=== PATIENT | female | born 2000 ===

== ENCOUNTER 2024-09-20 11:06 | Emergency (ER) | payer OTHER, SELFPAY ==
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
[2024-09-20 11:31] VITALS: BP 104/70; BP 128/78; PULSE 88; RESP 18; TEMP 36.7; O2SAT 97; O2SAT 98; BMI 27.7
--- NOTE | 2024-09-20 11:41 | PC.NURSE ---
pt is refusing to change into jazmyne loya. states then i'm not suicidal anymore
--- NOTE | 2024-09-20 12:03 | MHC.CARE ---
CARE team attempted to speak with someone at [place] regarding the pt's [facility] status. EMS reported that she was transported under that status however were not given the paperwork. Admissions transferred this clinician to the [place] unit, however the phone rang for a long period of time without being answered.
--- OUTSIDE RECORDS SUMMARY | 2024-09-20 12:14 | XMS_ITS | Encounter Summary ---
Author Organization [employer] Address [address] [place] [address] [address] [place] [address] Care Team Providers Care Polisher Implant Name Role Phone Musa Mojica NP Primary Care Provider [phone] Reason for Visit * Reason Onset Date Comments Med Refill 09/19/2024 Encounter Details Date Type Department Care Team ([facility] st Contact Info) Description 09/19/2024 Refill [facility] [address] [place] [address] Musa Mojica NP [address] [place] [address] Gender dysphoria Social History Tobacco Use Types Packs/Day Years Used Date Smoking Tobacco: Never Smokeless Tobacco: Current Snuff Alcohol Use Standard Drinks/Week Comments Never 0 (1 standard drink = 0.6 oz pur e alcohol) Depression Answer Date Recorded Patient Health Questionnaire-9 Score 27 08/29/2024 Patient Health Questionnaire-9 Score 27 08/29/2024 Last PHQ-9: Questionnaire Data 3 0 08/29/2024 Depression Answer Date Recorded Patient Health Questionnaire-2 Score 6 08/29/2024 Comments No Sex and Gender Information Value Date Recorded Sex Assigned at Female 02/08/2024 10:41 AM EST Legal Sex Female 10:40 AM EST Gender Identity Male 02/08/2024 10:41 AM EST Sexual Orientation Bisexual 02/08/2024 10 :41 AM EST documented as of this encounter Miscellaneous Notes * Telephone Encounter - Charles Trevino MA - 09/19/2024 3:40 PM EDT Control Substance Requested by : Previous Appt: Office Visit on 08/29/2024 Component Date Value Ref Range Status Testosterone, Total, MS 08/29/2024 955 (H) 2 - 45 ng/dL Final Comment: For additional information, please refer to [email or web address].amazingtunes/faq/ [email or web address] (This link is being provided for informational/ educational purposes only.) This test was developed and its analytical performance characteristics have been determined by [facility] [place], [place]. It has not been cleared or approved by the U.S. Food and Drug Administration. This assay has been validated pursuant to the CLIA regulations and is used for clinical purposes. Estradiol, Free 08/29/2024 0.61 pg/mL Final Comment: Female Reference Ranges for Estradiol, Free (pg/mL): Follicular Stage: 0.43-5.03 Luteal Stage: 0.40-5.55 Postmenopausal: < or = 0.38 Estradiol, Ultrasensitive, LC/MS 08/29/2024 35 pg/mL Final Comment: Female Reference Ranges for Estradiol, Ultrasensitive (pg/mL): Follicular Phase: 39-375 Luteal Phase: 48-440 Postmenopausal Phase: < or = 10 This test was developed and its analytical performance characteristics have been determined by [facility]. It has not been cleared or approved by the FDA. This assay has been validated pursuant to the CLIA regulations and is used for clinical purposes. Hemoglobin 08/29/2024 12.4 11.7 - 15.5 g/dL Final Hematocrit 08/29/2024 41.5 35.0 - 45.0 % Final HIV Final Interpretation 08/29/2024 Final Comment: HIV Negative HIV-1 antigen and HIV-1/HIV-2 antibodies were not detected. There is no laboratory evidence of HIV infection. HIV Antigen/Antibody, 4th Generati* 08/29/2024 NON-REACTIVE NON-REACTIVE Final Hepatitis C Antibody 08/29/2024 NON-REACTIVE NON-REACTIVE Final Comment: HCV antibody was non-reactive. There is no laboratory evidence of HCV infection. In most cases, no further action is required. However, if recent HCV exposure is suspected, a test for HCV RNA (test code 88050) is suggested. For additional information please refer to http://BrightWhistle.amazingtunes/faq/MNX42v8 (This link is being provided for informational/ educational purposes only.) Cholesterol, Total 08/29/2024 212 (H) <200 mg/dL Final HDL Cholesterol 08/29/2024 48 (L) > OR = 50 mg/dL Final Triglycerides 08/29/2024 125 <150 mg/dL Final LDL Cholesterol 08/29/2024 139 (H) mg/dL Final Comment: Reference range: <100 Desirable range <100 mg/dL for primary prevention; <70 mg/dL for patients with CHD or diabetic patients with > or = 2 CHD risk factors. LDL-C is now calculated using the Ezra-Culver calculation, which is a validated novel method providing better accuracy than the Friedewald equation in the estimation of LDL-C. Ezra SS et al. BYRON. 2013;310(19): 9261-3561 (http://BrightWhistle.Ticket Cake.Leixir/faq/SSV007) Chol/HDLC Ratio 08/29/2024 4.4 <5.0 (calc) Final Non-HDL Cholesterol 08/29/2024 164 (H) <130 mg/dL Final Comment: For patients with diabetes plus 1 major ASCVD risk factor, treating to a non-HDL-C goal of <100 mg/dL (LDL-C of <70 mg/dL) is considered a therapeutic option. Hepatitis B Core Antibody Total 08/29/2024 NON-REACTIVE NON-REACTIVE Final Comment: For additional information, please refer to http://Sutus/faq/ZJQ327 (This link is being provided for informational/ educational purposes only.) Hepatitis B Surface Ag 08/29/2024 NON-REACTIVE NON-REACTIVE Final Comment: For additional information, please refer to http://BrightWhistle.amazingtunes/faq/TZY819 (This link is being provided for informational/ educational purposes only.) Hepatitis B Surface Antibody Immun* 08/29/2024 16 > OR = 10 mIU/mL Final Comment: PATIENT HAS IMMUNITY TO HEPATITIS B VIRUS. For additional information, please refer to http://Sutus/faq/PVT308 (This link is being provided for informational/ educational purposes only). Past Appointments Date Time Status Provider Department Type Appt Notes 09/05/2024 3:50 PM Can Musa Mojica NP [facility] Office Visit 1 week f/u 09/02/2024 1:00 PM Chirag Fuentes NP [facility] PR[facility] OV Extended 08/29/2024 4:10 PM Alexandria Mojica NP [facility] Office Visit f/u on a1c 08/23/2024 10:00 AM [facility] MAT NURSING [facility] PR[facility] OV Extended OUD intake for suboxone, releasing from incarceration. On 16mg 08/21/2024 11:00 AM Chirag Tillman NP [facility] Office Visit f/u Future Appointments Date Time Provider Department Center 09/23/2024 1:50 PM Tila Bell NP [facility] Control Substance Request Medications: testosterone cypionate (Depo-Testosterone) 200 MG/ML injection Last Refill Quantity: 1mL(7) LOAN SECRETARY Last # of Refills: 0 Last Rx Printed: 08/29/2024 LAST SOLD:08/30/2024 [facility]: Did you locate the patient record in the [facility] System? Yes Did the Patient have more than 1 record under that name and ? Yes Were there any non-[facility] prescribers found, not previously noted as acceptable in the last 6 months? N/A Were there any meds filled outside [place] in the last 6 months? No Are the any meds listed on the [facility] that are not on the current med list from the last 6 months?N/A documented in this encounter Plan of Treatment Upcoming Encounters Date Type Department Care Team (Late st Contact Info) Description 09/23/2024 1:50 PM EDT Office Visit [facility] [address] [place] [address] Tila Bell NP [address] [place] [address] documented as of this encounter Visit Diagnoses Diagnosis Gender dysphoria documented in this encounter Care Teams Polisher Implant Relationship Specialty Start Date End Date Musa Mojica NP [address] [place] [id number] PCP - General Family Medicine 08/29/24 documented as of this encounter
--- OUTSIDE RECORDS SUMMARY | 2024-09-20 12:14 | XMS_ITS | Clinical Summary ---
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 Medications buprenorphine-nal oxone (SUBOXONE) 8-[address] 1 Film under the tongue in the morning and 1 Film before bedtime. Active cetirizine (ZYRTEC) 10 MG tablet Take 10 mg by mouth daily 024 Active naloxone (NARCAN) 4 MG/0.1ML spray 4 mg by Nasal route See Admin Instructions 025 2025 Active traZODone (DESYREL) 50 MG tablet Take 25 mg by mouth nightly Active testosterone cypionate (DEPOTESTOTERONE) 200 MG/ML injection Inject 40 mg into the muscle once a week 024 Active naloxone (NARCAN) 4 MG/0.1ML spray 1 spray intranasally in 1 nostril, may repeat using a new device every 2-3mins in alternating nostrils until medical help arrives 025 2024 Active escitalopram (LEXAPRO) 5 MG tablet Take 1 tablet by mouth nightly for 7 days 7 tablet 025 2024 Active clonazePAM (KLONOPIN) 0.5 MG tablet Take 1 tablet by mouth at bedtime for 7 days 6 tablet 025 2024 Active OLANZapine zydis (ZYPREXA) 5 MG disintegrating tablet Take 1 tablet by mouth nightly for 7 days 7 tablet 2024 Active naloxone (NARCAN) 4 MG/0.1ML spray 1 spray intranasally in 1 nostril, may repeat using a new device every 2-3mins in alternating nostrils until medical help arrives 1 each 2024 Active traZODone (DESYREL) 100 MG tablet Take 2 tablets by mouth nightly 60 tablet 2024 Discontinued(D ose/Sig Adjustment) OLANZapine zydis (ZYPREXA) 5 MG disintegrating tablet Take 1 tablet by mouth nightly 30 tablet 2024 Discontinued(T herapy Completed) ibuprofen (ADVIL) 600 MG tablet Take 1 tablet by mouth every 6 (six) hours for 5 days 20 tablet 2024 acetaminophen (TYLENOL) 500 MG tablet Take 1 tablet by mouth every 6 (six) hours for 5 days 20 tablet 2024 Atropine Sulfate (ATROPINE, PF,) 1 MG/ML injection Inject 1 mL into the vein once for 1 dose 1 mL 2024 Discontinued(S top Taking at Discharge) busPIRone (BUSPAR) 10 MG tablet Take 10 mg by mouth in the morning and 10 mg before bedtime. 2024 Discontinued(T herapy Completed) FLUoxetine (PROZAC) 20 MG capsule Take 60 mg by mouth daily 2024 Discontinued(T herapy Completed) acetaminophen (TYLENOL) 325 MG tablet Take 2 tablets by mouth every 6 (six) hours as needed for Pain for up to 14 days 56 tablet 2024 Discontinued(S top Taking at Discharge) gabapentin (NEURONTIN) 300 MG capsule Take 1 capsule by mouth 3 (three) times daily 2024 Discontinued(S top Taking at Discharge) cloNIDine (CATAPRES) 0.2 MG tablet 0.2 mg 3 (three) times daily as needed (anxiety) 024 2024 Discontinued(S top Taking at Discharge) simethicone (MYLICON) 80 MG chewable tablet Take 1 tablet by mouth every 6 (six) hours as needed for Flatulence 025 2024 Discontinued(S top Taking at Discharge) clonazePAM (KLONOPIN) 0.5 MG tablet Take 1 tablet by mouth in the morning and 1 tablet before bedtime. 025 2024 Discontinued escitalopram (LEXAPRO) 5 MG tablet Take 1 tablet by mouth nightly 025 2024 Discontinued OLANZapine zydis (ZYPREXA) 5 MG disintegrating tablet Take 1 tablet by mouth in the morning and 1 tablet before bedtime. 025 2024 Discontinued Active Problems Problem Noted Date Diagnosed Date Cecal lesion 09/11/2024 Foreign body alimentary tract, sequela Tachycardia 09/11/2024 Intentional ingestion of batteries, sequela 07/2024 Acute cystitis without hematuria 09/05/2024 Vaginal discharge 09/05/2024 Discharge from right nipple 09/05/2024 Overview (09/05/2024): Patient reports blue color. Closed fracture of phalanx of right little finge r 09/05/2024 Clonidine overdose, intentio nal self-harm, initial encounter 12/15/2023 Medication overdose 12/15/2023 Borderline personality disorder 12/06/2023 Self-injurious behavior 12/05/2023 Right-sided chest wall pain 12/05/2023 Hyperlipidemia 12/05/2023 Esophageal reflux disease Esophageal ulcer Hematochezia Irritable bowel syndrome Anemia History of iron deficiency [id number]-ht-[id number] transgender person Nicotine dependence Overview (12/05/2023): Daily use of nicotine gum, a4 4 mg doses. Resolved Problems Problem Noted Date Diagnosed Date Resolved Date Acute cystitis without hematuria 12/20/2023 12/22/2023 Encounters Date Type Department Care Team Description 09/16/2024 5:18 PM EDT - 09/17/2024 2:29 [place] [address] Eloy Minor MD Borderline personality disorder (HCC); Discharge from right nipple [N64.52]; Intentional ingestion of batteries, sequela [T18.9XXS]; Vaginal discharge [N89.8] Discharge Disposition: Home 09/11/2024 11:59 PM EDT Anesthesia Event [facility] - ICU [address] [place] [address] Kwabena Olsen MD Zhang, Yuemei, MD 09/11/2024 11:48 PM EDT - 09/16/2024 5:18 PM EDT [place] [address] Carmelo Lerma MD Erkan, Muge, MD Ali, Basmaa, MD Paz, Ziv, MD Intentional ingestion of batteries, sequela; Borderline personality disorder (HCC) Discharge Disposition: Psych Admit-[facility] 09/10/2024 [place] [address] 09/09/2024 10:43 AM EDT Anesthesia Event [facility] Operating Room [address] [place] [phone] Zeus Moreau MD 09/09/2024 9:50 AM EDT - 09/09/2024 10:10 AM EDT Surgery [facility] Operating Room [address] [place] [phone] Arben Cornejo MD EGD (ESOPHAGOGASTRODUODE NOSCOPY) 09/09/2024 Travel 09/05/2024 Plan of Care Documentation [address] [address] 09/04/2024 4:01 PM EDT - 09/11/2024 11:43 [place] [address] Eloy Minor MD Borderline personality disorder (HCC); Acute cystitis without hematuria [N30.00]; Clonidine overdose, intentional self-harm, initial encounter ([facility]) [T46.5X2A]; Closed nondisplaced fracture of phalanx of right little finger with routine healing, unspecified phalanx, subsequent encounter [S62.606D]; Discharge from right nipple [N64.52]; Gastroesophageal reflux disease with esophagitis, unspecified whether hemorrhage [K21.00]; Ulcer of esophagus with bleeding [K22.11]; Cmrpkn-id-zqmx transgender person [Z78.9]; Hematochezia [K92.1]; History of iron deficiency [Z86.39]; Irritable bowel syndrome, unspecified type [K58.9]; Vaginal discharge [N89.8]; Cecal lesion; Foreign body alimentary tract, sequela; Tachycardia Discharge Disposition: Other Facility 09/01/2024 12:33 AM EDT - 09/04/2024 3:55 PM EDT [place] [address] Tila Matos MD Gillette, Michael, MD Agarwal, Anup, MD Clonidine overdose, intentional self-harm, initial encounter ([facility]); Self-injurious behavior Discharge Disposition: Psych Admit-[facility] 09/01/2024 Travel 08/30/2024 9:00 AM EDT Office Visit [facility] ORTHOPED[facility] - [address] [phone] Abril Junior MD Right hand pain (Primary Dx); Closed displaced fracture of neck of right fifth metacarpal bone with routine healing 08/30/2024 Travel 08/24/2024 11:44 AM EDT - 08/24/2024 5:24 PM EDT Emergency [facility] [place] [address] Florinda Alejandra MD Closed displaced fracture of shaft of fifth metacarpal bone of right hand, initial encounter; Right lower quadrant abdominal pain; Pelvic pain; Dysuria Discharge Disposition: Home 08/24/2024 Travel from Last 3 Months Social History Tobacco Use Types Packs/Day Years Used Date Smoking Tobacco: Every Day Cigarettes 0.3 5.6 Started: 2019 Passive Smoke Exposure: Never Smokeless Tobacco: Former Quit: 02/2023 Tobacco Cessation:Ready to Q uit: No; Counseling Given: Yes Alcohol Use Standard Drinks/Week Comments Yes 0 (1 standard drink = 0.6 oz pur e alcohol) Comments No Sex and Gender Information Value Date Recorded Sex Assigned at Not on file Legal Sex Female 8:25 AM EDT Gender Identity Transgender Male 12/13/2023 1:50 PM EST Sexual Orientation Bisexual 12/03/2023 12 :20 AM EDT Last Filed Vital Signs Vital Sign Reading Time Taken Comments Blood Pressure 117/82 09/17/2024 7:44 AM EDT Pulse 85 09/17/2024 7:44 AM EDT Temperature 36.6 C (97.8 F) 09/17/2024 7:44 AM EDT Respiratory Rate 18 09/17/2024 7:53 AM EDT Oxygen Saturation 97% 09/17/2024 7:44 AM EDT Inhaled Oxygen Concentration - - Weight 75.4 kg (166 lb 3.2 oz) 09/16/2024 5:27 P M EDT Height 160 cm (5' 3 ) 09/16/2024 5:27 PM EDT Body Mass Index 29.44 09/16/2024 5:27 PM EDT Plan of Treatment Health Maintenance Due Date Last Done Comments Contraceptive Care Screening 1999 PAP SMEAR 1999 HPV VACCINE SERIES (1 - Risk 3-dose series) 12/28/2010 HIV SCREENING 12/28/2012 CHLAMYDIA SCREEN 12/28/2014 AWQ Questionnaire 12/28/2017 HEALTH CARE PROXY 12/28/2017 HEP C SCREEN 12/28/2017 Smoking/Tobacco Cessation Counseling 12/28/2017 PNEUMOCOCCAL VACCINE SERIES (< 65) (1 of 2 - PCV) 12/28/2018 PHYSICAL EXAM 12/28/2021 COVID-19 Vaccine (3 - 2023-2 5 season) 2023 07/23/2020, 06/25/2020 INFLUENZA VACCINE (#1) 2024 LIPID SCREENING 09/17/2029 09/17/2024, 09/06, 12/17/2023, Additional history exists TETANUS VACCINE (2 - Td or Tdap) 06/03/2031 06/03/19 ZOSTER VACCINE (1 of 2) 12/28/2049 Procedures Procedure Name Priority Date/Time Associated Diagnosis Comments HC LIPID PANEL Routine 09/17/2024 7:39 AM EDT HC HEMOGLOBIN A1C Routine 09/15/2024 7:3 5 AM EDT HC LIPID PANEL Routine 09/15/2024 7:35 AM EDT HC BASIC METABOLIC PANEL Routine 09/15/2024 7:35 AM EDT HC CBC & PLATELET Routine 09/15/2024 7:3 5 AM EDT XR ABDOMEN (KUB) 1 VIEW Routine 09/14/2024 9:34 PM EDT XR CHEST PORTABLE Routine 09/14/2024 10: 26 AM EDT XR ABDOMEN PORTABLE Routine 09/14/2024 1 0:25 AM EDT HC CBC & PLATELET Routine 09/14/2024 10: 20 AM EDT PHOSPHORUS MAGNESIUM Routine 09/14/2024 10:20 AM EDT HC BASIC METABOLIC PANEL Routine 09/14/2024 10:20 AM EDT XR CHEST PORTABLE Routine 09/13/2024 1:0 7 PM EDT XR ABDOMEN PORTABLE Routine 09/13/2024 1 :07 PM EDT HC CBC & PLATELET Routine 09/13/2024 4:3 9 AM EDT HC BASIC METABOLIC PANEL Routine 09/13/2024 4:39 AM EDT PHOSPHORUS MAGNESIUM Routine 09/13/2024 4:39 AM EDT XR CHEST PORTABLE Routine 09/12/2024 7:1 3 PM EDT XR CHEST PORTABLE Routine 09/12/2024 1:1 6 PM EDT XR ABDOMEN PORTABLE Routine 09/12/2024 1 2:30 PM EDT CARDIO/PULM SCAN 09/12/2024 9:26 AM EDT XR ABDOMEN PORTABLE Routine 09/12/2024 5 :07 AM EDT HOLD BLUE TOP TUBE Routine 09/12/2024 12 :58 AM EDT HC LACTIC ACID Routine 09/12/2024 12:58 AM EDT HC COMPREHENSIVE METABOLIC PANEL Routine 09/12/2024 12:58 AM EDT HC CBC & PLATELET Routine 09/12/2024 12: 58 AM EDT CARDIO/PULM SCAN 09/12/2024 12:3 0 AM EDT XR CHEST PORTABLE Routine 09/12/2024 12: 20 AM EDT XR ABDOMEN PORTABLE Routine 09/12/2024 1 2:20 AM EDT HC LACTIC ACID Routine 09/11/2024 2:48 PM EDT HC BASIC METABOLIC PANEL Routine 09/11/2024 2:48 PM EDT CBC, PLATELET & DIFFERENTIAL Routine 09/11/2024 2:48 PM EDT TYPE AND SCREEN Routine 09/11/2024 2:[address] ABDOMEN & PELVIS W IV CONTRAST Stat 09/11/2024 9:44 AM EDT XR ABDOMEN (KUB) 1 VIEW Routine 09/10/2024 10:11 PM EDT XR ABDOMEN (KUB) 1 VIEW Routine 09/10/2024 9:56 AM EDT XR ABDOMEN (KUB) 1 VIEW Routine 09/09/2024 9:56 PM EDT [facility] (18+) UP TO 2 HR Routine 09/09/2024 6:45 PM EDT XR ABDOMEN (KUB) 1 VIEW Routine 09/09/2024 1:40 PM EDT EGD (ESOPHAGOGASTRODUODENO SCOPY) 09/09/2024 10:43 AM EDT URINE TEST (POINT OF CARE) Routine 09/09/2024 10:20 AM EDT EKG Routine 09/08/2024 8:39 PM EDT XR CHEST 2 VIEWS Stat 09/08/2024 8:02 PM EDT XR ABDOMEN (KUB) WITH UPRIGHT AND OR DECUBITUS Stat 09/08/2024 8:01 PM EDT [facility] (18+) UP TO 2 HR Routine 09/08/2024 7:46 PM EDT XR HAND RIGHT MINIMUM 3 VIEWS Routine 09/08/2024 1:03 PM EDT XR HAND RIGHT MINIMUM 3 VIEWS Routine 09/06/2024 2:34 PM EDT [facility] (18+) UP TO 2 HR Routine 09/05/2024 9:50 PM EDT HC CULTURE,URINE W/COLONY COUNT Routine 09/04/2024 12:14 AM EDT URINALYSIS RFLX TO URINE CULT Routine 09/04/2024 12:14 AM EDT CARDIO/PULM SCAN 09/03/2024 7:30 AM EDT HC PROLACTIN Routine 09/03/2024 5:00 AM EDT HC HEMOGLOBIN A1C Routine 09/03/2024 5:0 0 AM EDT PHOSPHORUS MAGNESIUM Routine 09/03/2024 5:00 AM EDT HC BASIC METABOLIC PANEL Routine 09/03/2024 5:00 AM EDT HC CBC & PLATELET Routine 09/03/2024 5:0 0 AM EDT CARDIO/PULM SCAN 09/02/2024 8:15 PM EDT CARDIO/PULM SCAN 09/02/2024 2:49 PM EDT HC GLUCOSE (POC) Routine 09/02/2024 1:29 PM EDT HC FERRITIN Routine 09/02/2024 4:06 AM EDT HC TOTAL IRON BINDING CAPACITY Routine 09/02/2024 4:06 AM EDT HC IRON Routine 09/02/2024 4:06 AM EDT PHOSPHORUS MAGNESIUM Routine 09/02/2024 4:06 AM EDT HC CBC & PLATELET Routine 09/02/2024 4:0 6 AM EDT HC BASIC METABOLIC PANEL Routine 09/02/2024 4:06 AM EDT EKG Routine 09/01/2024 8:07 PM EDT EKG Routine 09/01/2024 4:28 PM EDT HC CHORIONIC (HCG) QUALITATIVE SERUM Routine 09/01/2024 3:25 PM EDT HC BASIC METABOLIC PANEL Routine 09/01/2024 3:25 PM EDT PHOSPHORUS MAGNESIUM Routine 09/01/2024 3:25 PM EDT EKG Routine 09/01/2024 2:59 PM EDT CARDIO/PULM SCAN 09/01/2024 1:07 PM EDT EKG Routine 09/01/2024 12:10 PM EDT HC BASIC METABOLIC PANEL Routine 09/01/2024 11:56 AM EDT PHOSPHORUS MAGNESIUM Routine 09/01/2024 11:56 AM EDT EKG Routine 09/01/2024 10:04 AM EDT HC BASIC METABOLIC PANEL Routine 09/01/2024 8:26 AM EDT PHOSPHORUS MAGNESIUM Routine 09/01/2024 8:26 AM EDT EKG Routine 09/01/2024 3:56 AM EDT HC CBC & PLATELET Routine 09/01/2024 3:5 1 AM EDT HC BASIC METABOLIC PANEL Routine 09/01/2024 3:51 AM EDT PHOSPHORUS MAGNESIUM Routine 09/01/2024 3:51 AM EDT URINE DRUG SCREEN Routine 09/01/2024 2:2 3 AM EDT EKG Routine 09/01/2024 2:06 AM EDT [place] INTUBATION ENDOTRACHEAL EMERGENCY PROCEDURE Routine 09/01/2024 2:05 AM EDT XR CHEST PORTABLE Stat 09/01/2024 2:0 4 AM EDT HC ARTERIAL BLOOD GAS ANALYSIS Routine 09/01/2024 2:04 AM EDT BLOOD SUGAR FINGERSTICK (POINT OF CARE) Routine 09/01/2024 1:34 AM EDT HOLD RED TOP TUBE Routine 09/01/2024 1:1 2 AM EDT HOLD GREEN TOP TUBE Routine 09/01/2024 1 :12 AM EDT HOLD BLUE TOP TUBE Routine 09/01/2024 1: 12 AM EDT EKG Routine 09/01/2024 12:57 AM EDT HC HEPATIC FUNCTION Routine 09/01/2024 1 2:52 AM EDT SERUM DRUG SCREEN Routine 09/01/2024 12: 52 AM EDT HC BASIC METABOLIC PANEL Routine 09/01/2024 12:52 AM EDT CBC, PLATELET & DIFFERENTIAL Routine 09/01/2024 12:52 AM EDT US PELVIC NON-OB W TRANSVAG, 3D, DUPLEX Stat 08/24/2024 3:[address] ABDOMEN & PELVIS W IV CONTRAST Stat 08/24/2024 2:22 PM EDT URINE CULTURE WILL NOT BE DONE Routine 08/24/2024 1:24 PM EDT URINE TEST (POINT OF CARE) Routine 08/24/2024 12:43 PM EDT XR HAND RIGHT MINIMUM 3 VIEWS Stat 08/24/2024 12:32 PM EDT URINALYSIS RFLX TO URINE CULT Routine 08/24/2024 11:59 AM EDT HC COMPREHENSIVE METABOLIC PANEL Routine 08/24/2024 11:58 AM EDT CBC, PLATELET & DIFFERENTIAL Routine 08/24/2024 11:58 AM EDT from Last 3 Months Results * (ABNORMAL) Lipid Panel (09/17/2024 7:39 AM EDT) Only the most recent of2 resultswithin the time period is included. Pathologist [facility] Cholesterol 156 0 - 239 mg/dL [facility] TRIGLYCERIDES 207(H) 0 - 150 mg/dL [facility] HIGH DENSITY LIPOPROTEIN 30(L) 40 - 60 mg/dL [facility] LOW DENSITY LIPOPROTEIN DIRECT 90 0 - 189 mg/dL [facility] 09/17/2024 7:39 AM EDT 09/17/2024 8:21 AM EDT us Eloy Minor MD LABORATORY Final Res ult [id number] [place] [address], * (ABNORMAL) CBC with Platelet (09/15/2024 7:35 AM EDT) Only the most recent of7 resultswithin the time period is included. Pathologist [facility] WHITE BLOOD CELL COUNT 5.1 4.0 - 11.0 TH/uL [facility] RED BLOOD CELL COUNT 4.49 3.90 - 5.20 M/uL [facility] HEMOGLOBIN 10.5(L) 11.2 - 15.7 g/dL [facility] HEMATOCRIT 34.7 34.1 - 44.9 % [facility] MEAN CORPUSCULAR VOL 77.3(L) 80.0 - 100.0 fl [facility] MEAN CORPUSCULAR HGB 23.4(L) 26.0 - 34.0 pg [facility] MEAN CORRIE HGB CONC 30.3(L) 31.0 - 37.0 g/dL [facility] RBC DISTRIBUTION WIDTH STD DEV 56.6(H) 35.1 - 46.3 fL [facility] PLATELET COUNT 314 150 - 400 TH/uL [facility] MEAN PLATELET VOLUME 9.9 8.7 - 12.5 fL [facility] NRBC % 0.0 0.0 - 0.0 % [facility] ABSOLUTE NRBC COUNT 0.0 0.0 - 0.0 TH/uL [facility] 09/15/2024 7:35 AM EDT 09/15/2024 7:54 AM EDT Narrative [facility] - 09/17/2024 1:04 AM EDT Tests added: A1C by AA on 09/17/24 at 0103 by [email or web address]. us Catherine Manzanares MD LABORATORY Edited Result - Final Performing Organization Address [facility] [place] [address], * Hemoglobin A1c (09/15/2024 7:35 AM EDT) Only the most recent of2 resultswithin the time period is included. HEMOGLOBIN A1C 5.6 4.0 - 5.6 % [facility] Comment: Hemoglobin A1C Interpretive information 5.7 - 6.4 % Increased risk for diabetes; recommend lifestyle management > 6.4 % Diagnosis of diabetes; should have at least 2 elevated results for diagnosis of diabetes. > 8.0 % Action suggested < 7.0 % Goal of therapy for diabetics; higher targets may apply for some with specific comorbidities. ESTIMATED AVERAGE GLUCOSE 114 74 - 160 mg/dL [facility] 09/15/2024 7:35 AM EDT 09/15/2024 7:53 AM EDT us Eloy Minor MD LABORATORY Final Res ult Performing Organization Address [facility] [place] [address], * Basic Metabolic Panel (09/15/2024 7:35 AM EDT) Only the most recent of11 resultswithin the time period is included. SODIUM 140 136 - 145 mmol/L [facility] POTASSIUM 3.9 3.5 - 5.1 mmol/L [facility] CHLORIDE 106 98 - 107 mmol/L [facility] CARBON DIOXIDE 24 21 - 32 mmol/L [facility] ANION GAP 10 10 - 22 mmol/L [facility] CALCIUM 8.8 8.5 - 10.5 mg/dL [facility] Glucose Random 95 74 - 160 mg/dL [facility] BUN (UREA NITROGEN) 12 7 - 18 mg/dL [facility] CREATININE 0.7 0.4 - 1.2 mg/dL [facility] ESTIMATED GLOMERULAR FILT RATE > 60 >60 ML/MIN [facility] Comment: On October 29, 2020 the NKF-ASN Task Force recommended the adoption of the new eGFR 2020 CKD EPI creatinine equation that estimates kidney function without a race variable. NKF and ASN recommend diagnosing kidney disease using a blood test for creatinine to estimate GFR and a urine test for albumin to calculate albumin to creatinine ratio (uACR). For more information please see https://www.kidney.org/news/xxc-twx-qxw-fnnwzjt-bcl-oje-to-d geebsdd-evxtvq-jqrpzggo. 09/15/2024 7:35 AM EDT 09/15/2024 7:53 AM EDT Narrative [facility] - 09/17/2024 1:21 AM EDT Tests added: LIPID by AA on 09/17/24 at 0103 by [email or web address]. us Ctaherine Manzanares MD LABORATORY Edited Result - Final [facility] [address] [place] [address], [place] * XR Abdomen (KUB) 1 view (09/14/2024 9:34 PM EDT) Only the most recent of5 resultswithin the time period is included. Anatomical Region Laterality Modality Abdomen and Pelvis Digital Radio graphy 09/15/2024 8:38 AM EDT Impressions 09/15/2024 8:39 AM EDT Nonobstructed bowel gas pattern. No foreign bodies noted. Reviewed and Electronically Signed By: Jossie Ndiaye MD Signed Date and Time: 09/15/2024 8:39 AM Narrative 09/15/2024 8:39 AM EDT Technique: Abdomen, 1 view Indication: Battery injestion. monitor if passed Comparison: 09/14/2024 at 10:19 a.m. Findings: Tubes/lines: None Bowel Gas Pattern: There are no dilated small bowel loops to suggest small bowel obstruction. The previously noted batteries in the distal colon appear to have passed and no foreign bodies noted. Calcifications: There are no abnormal calcifications. Bones: Unremarkable Procedure Note Jossie Ndiaye MD - 09/15/2024 Technique: Abdomen, 1 view Indication: Battery injestion. monitor if passed Comparison: 09/14/2024 at 10:19 a.m. Findings: Tubes/lines: None Bowel Gas Pattern: There are no dilated small bowel loops to suggest smallbowel obstruction. The previously noted batteries in the distal colonappear to have passed and no foreign bodies noted. Calcifications: There are no abnormal calcifications. Bones: Unremarkable IMPRESSION: Nonobstructed bowel gas pattern. No foreign bodies noted. Reviewed and Electronically Signed By: Jossie Ndiaye MD Signed Date and Time: 09/15/2024 8:39 AM us Kory Montana MD RAD XR ORDERABLES Zuly l Result * XR Chest Portable (09/14/2024 10:26 AM EDT) Only the most recent of6 resultswithin the time period is included. Anatomical Region Laterality Modality Chest Digital Radiogra phy 09/14/2024 10:5 6 AM EDT Impressions 09/14/2024 10:57 AM EDT No ingested foreign body or acute cardiopulmonary findings on portable chest radiograph. Reviewed and Electronically Signed By: Victorino Grant MD Signed Date and Time: 09/14/2024 10:57 AM Narrative 09/14/2024 10:57 AM EDT TECHNIQUE: Portable chest, 10:17 a.m. Indication: swallowed batteries Comparison: 09/13/2024 FINDINGS: Quality: Satisfactory. Tubes/lines: None. Lungs: The lungs are clear. Pleura: There is no pleural effusion or pneumothorax. Heart: The cardiac silhouette is unremarkable. Mediastinum/eleni: Unremarkable. Bones and Soft Tissues: There are screws in the left glenoid. There are no other radiopaque foreign bodies. Procedure Note Victorino Grant MD - 09/14/2024 TECHNIQUE: Portable chest, 10:17 a.m. Indication: swallowed batteries Comparison: 09/13/2024 FINDINGS: Quality: Satisfactory. Tubes/lines: None. Lungs: The lungs are clear. Pleura: There is no pleural effusion or pneumothorax. Heart: The cardiac silhouette is unremarkable. Mediastinum/eleni: Unremarkable. Bones and Soft Tissues: There are screws in the left glenoid. There are noother radiopaque foreign bodies. IMPRESSION: No ingested foreign body or acute cardiopulmonary findings on portablechest radiograph. Reviewed and Electronically Signed By: Victorino Grant MD Signed Date and Time: 09/14/2024 10:57 AM us Catherine Manzanares MD RAD XR ORDERABLES Final Result * XR Abdomen Portable (09/14/2024 10:25 AM EDT) Only the most recent of5 resultswithin the time period is included. Anatomical Region Laterality Modality Abdomen and Pelvis Digital Radio graphy 09/14/2024 11:1 6 AM EDT Impressions 09/14/2024 11:17 AM EDT 1 remaining ingested battery, in the sigmoid colon. Reviewed and Electronically Signed By: Victorino Grant MD Signed Date and Time: 09/14/2024 11:17 AM Narrative 09/14/2024 11:17 AM EDT Technique: Portable Abdomen, 10:19 a.m. Indication: swallowed batteries Comparison: 09/13/2024 Findings: Tubes/lines: None Bowel Gas Pattern: There is a non-obstructed bowel gas pattern. One of the 2 previously seen batteries remains and has migrated to the sigmoid colon, and the other is no longer visualized. Calcifications: There are no significant calcifications. Soft Tissues: No soft tissue masses are evident. Bones: Unremarkable Procedure Note Victorino Grant MD - 09/14/2024 Technique: Portable Abdomen, 10:19 a.m. Indication: swallowed batteries Comparison: 09/13/2024 Findings: Tubes/lines: None Bowel Gas Pattern: There is a non-obstructed bowel gas pattern. One of the2 previously seen batteries remains and has migrated to the sigmoid colon,and the other is no longer visualized. Calcifications: There are no significant calcifications. Soft Tissues: No soft tissue masses are evident. Bones: Unremarkable IMPRESSION: 1 remaining ingested battery, in the sigmoid colon. Reviewed and Electronically Signed By: Victorino Grant MD Signed Date and Time: 09/14/2024 11:17 AM Catherine Manzanares MD RAD XR ORDERABLES Final Result * Phosphorus Magnesium (09/14/2024 10:20 AM EDT) Only the most recent of8 resultswithin the time period is included. PHOSPHORUS 3.3 2.5 - 4.9 mg/dL [facility] MAGNESIUM 2.1 1.6 - 2.6 mg/dL [facility] 09/14/2024 10:2 0 AM EDT 09/14/2024 10:30 AM EDT Catherine Manzanares MD LABORATORY Final Result Performing Organization Address [facility] [place] [address], [place] * CARDIO/PULM SCAN (09/12/2024 9:26 AM EDT) Only the most recent of6 resultswithin the time period is included. us Nihon Kohden Device SCAN ORDERS Final Result * Hold Blue Top Tube (09/12/2024 12:58 AM EDT) Only the most recent of2 resultswithin the time period is included. Pathologist [facility] HOLD BLUE TOP TUBE RECEIVED IN HEMATOL [facility] 09/12/2024 12:5 8 AM EDT 09/12/2024 1:24 AM EDT Saima Le DO LABORATORY Final Result Performing Organization Address City/[facility] [place] [address], [place] * Lactic Acid (09/12/2024 12:58 AM EDT) Only the most recent of2 resultswithin the time period is included. LACTIC ACID 0.8 0.4 - 2.0 mmol/L [facility] 09/12/2024 12:5 8 AM EDT 09/12/2024 1:24 AM EDT us Saima Le DO LABORATORY Final Result [facility] [address] [place] [address], * (ABNORMAL) Comprehensive Metabolic Panel (09/12/2024 12:58 AM EDT) Only the most recent of2 resultswithin the time period is included. SODIUM 141 136 - 145 mmol/L [facility] POTASSIUM 3.7 3.5 - 5.1 mmol/L [facility] CHLORIDE 102 98 - 107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 result can be used for medical purposes only. It has not been confirmed by a second method and must not be used for non-medical purposes (i.e. employment testing, legal testing). For the most up-to-date information, including detected drugs and additional testing that can be added on, please refer to the Drug of Abuse Testing Information, available on [employer]. COCAINE METABOLITES URINE NEGATIVE CUTOFF 300 ng/mL [facility] Comment: This screening result can be used for medical purposes only. It has not been confirmed by a second method and must not be used for non-medical purposes (i.e. employment testing, legal testing). For the most up-to-date information, including detected drugs and additional testing that can be added on, please refer to the Drug of Abuse Testing Information, available on [employer]. OPIATES URINE NEGATIVE CUTOFF 300 ng/mL [facility] Comment: This screening result can be used for medical purposes only. It has not been confirmed by a second method and must not be used for non-medical purposes (i.e. employment testing, legal testing). For the most up-to-date information, including detected drugs and additional testing that can be added on, please refer to the Drug of Abuse Testing Information, available on [employer]. BENZODIAZEPINES URINE NEGATIVE CUTOFF 200 ng/mL [facility] Comment: This screening result can be used for medical purposes only. It has not been confirmed by a second method and must not be used for non-medical purposes (i.e. employment testing, legal testing). For the most up-to-date information, including detected drugs and additional testing that can be added on, please refer to the Drug of Abuse Testing Information, available on [employer]. CANNABINOIDS URINE NEGATIVE CUTOFF 50 ng/mL [facility] Comment: This screening result can be used for medical purposes only. It has not been confirmed by a second method and must not be used for non-medical purposes (i.e. employment testing, legal testing). For the most up-to-date information, including detected drugs and additional testing that can be added on, please refer to the Drug of Abuse Testing Information, available on [employer]. ETHANOL URINE NEGATIVE CUTOFF 10 mg/dL [facility] Comment: This screening result can be used for medical purposes only. It has not been confirmed by a second method and must not be used for non-medical purposes (i.e. employment testing, legal testing). For the most up-to-date information, including detected drugs and additional testing that can be added on, please refer to the Drug of Abuse Testing Information, available on [employer]. BUPRENORPHINE SCREEN URINE POSITIVE(A) CUTOFF 10 ng/mL [facility] Comment: This screening result can be used for medical purposes only. It has not been confirmed by a second method and must not be used for non-medical purposes (i.e. employment testing, legal testing). For the most up-to-date information, including detected drugs and additional testing that can be added on, please refer to the Drug of Abuse Testing Information, available on [employer]. OXYCOD SCRN URINE NEGATIVE CUTOFF 100 ng/mL [facility] Comment: This screening result can be used for medical purposes only. It has not been confirmed by a second method and must not be used for non-medical purposes (i.e. employment testing, legal testing). For the most up-to-date information, including detected drugs and additional testing that can be added on, please refer to the Drug of Abuse Testing Information, available on [employer]. FENTANYL URINE NEGATIVE CUTOFF 5 ng/mL [facility] Comment: This screening result can be used for medical purposes only. It has not been confirmed by a second method and must not be used for non-medical purposes (i.e. employment testing, legal testing). For the most up-to-date information, including detected drugs and additional testing that can be added on, please refer to the Drug of Abuse Testing Information, available on [employer]. METHADONE URINE NEGATIVE CUTOFF 300 ng/mL [facility] Comment: This screening result can be used for medical purposes only. It has not been confirmed by a second method and must not be used for non-medical purposes (i.e. employment testing, legal testing). For the most up-to-date information, including detected drugs and additional testing that can be added on, please refer to the Drug of Abuse Testing Information, available on [employer]. SPECIMEN VALIDITY URINE CREAT 387 >20 mg/dL [facility] SPECIMEN VALIDITY URINE PH 5.3 5.0 - 8.5 [facility] SPEC VALIDITY SPECIFIC GRAVITY 1.050(H) 1.003 - 1.035 [facility] Urine URINE SPECIMEN / Unknown 09/01/2024 2:23 AM EDT 09/01/2024 2:29 AM EDT Narrative [facility] - 09/01/2024 2:47 AM EDT URINE&Urine Tila Matos MD URINE ORDERABLES Final Result [facility] [address] [place] [address], [place] * Intubation (09/01/2024 2:05 AM EDT) Narrative Tila Matos MD - 09/01/2024 2:05 AM EDT Tila Matos MD 09/01/2024 4:05 AM Intubation Date/Time: 09/01/2024 2:05 AM Performed by: Tila Matos MD Authorized by: Tila Matos MD Location: ER Urgency: Emergent Difficult Airway: No Emergent Airway Documentation: Verbal Consent Obtained: No (emergent consent obtained) Patient Identity Confirmed by: Verbally with patient and arm band Indications and Patient Condition: Indications for Airway Management: Airway protection Sedation Level: Deep Preoxygenated: Yes Patient Position: Sniffing Manual In-Line Stabilization (MILS) Maintained Throughout: No Mask Difficulty Assessment: 0 - not attempted Breath Sounds: Bilateral Final Airway Details: Final Airway Type: Endotracheal airway Number of Attempts at Approach: 1 Additional Comments: 20mg etomidate 90mg rocuronium 7.5ETT, 22 @ the lip Tila Matos MD PROCEDURES Final Result * (ABNORMAL) Venous Blood Gas (09/01/2024 2:04 AM EDT) VENOUS pH 7.39 7.31 - 7.41 [facility] VENOUS PARTIAL CARBON DIOXIDE 40(L) 41.0 - 51.0 mmHg [facility] VENOUS PARTIAL PRESSURE OXYGEN 77 mmHG [facility] VENOUS BASE EXCESS -1.2 neg 2-3 mmol/L [facility] VENOUS BICARBONATE 24.1 23 - 28 [facility] NAA PERCENT OXYGEN SATURATION 96.4 % [facility] VENOUS PATIENTS TEMP 96.8 [facility] VENOUS FIO2 30.0 [facility] VENOUS OXYGEN DEVICE N/A [facility] VENOUS VENT MODE CMV VOLUME CONTROL [facility] VENOUS VENT RATE 16.0 [facility] VENOUS TIDAL VOLUME 400 [facility] VENOUS PEEP 5.0 [facility] VENOUS PUNCTURE SITE VENOUS [facility] VBG POTASSIUM 3.9 3.5 - 5.1 mmol/L [facility] Blood, venous 09/01/2024 2:0 4 AM EDT 09/01/2024 2:05 AM EDT Narrative [facility] - 09/01/2024 2:11 AM EDT Draw on Room Air or O2?->On Oxygen Tila Matos MD LABORATORY Final Result [facility] [address] [place] [address], [place] * Hold Green Top Tube (09/01/2024 1:12 AM EDT) HOLD GREEN TOP TUBE RECEIVED IN CHEM [facility] BLOOD SPECIMEN / Unknown 09/01/2024 1:12 AM EDT 09/01/2024 1:23 AM EDT Tila Matos MD LABORATORY Final Result [facility] [address] [place] [address], [place] * Hold Red Top Tube (09/01/2024 1:12 AM EDT) HOLD RED TOP TUBE RECEIVED IN CHEM [facility] BLOOD SPECIMEN / Unknown 09/01/2024 1:12 AM EDT 09/01/2024 1:23 AM EDT Tila Matos MD LABORATORY Final Result [facility] [address] [place] [address], [place] * Serum Drug Screen (09/01/2024 12:52 AM EDT) SALICYLATE < 0.5 3.0 - 20.0 mg/dL [facility] ACETAMINOPHEN < 5 10 - 30 ug/mL [facility] ETHANOL < 10 0 - 10 mg/dL [facility] 09/01/2024 12:5 2 AM EDT 09/01/2024 1:11 AM EDT Tila Matos MD LABORATORY Final Result Performing Organization Address City/[facility] Co de Phone Number [address] [address], [place] * (ABNORMAL) Hepatic Function Panel (09/01/2024 12:52 AM EDT) TOTAL PROTEIN 7.6 6.4 - 8.2 g/dL [facility] ALBUMIN 4.8 3.4 - 5.2 g/dL [facility] BILIRUBIN TOTAL 0.7 0.2 - 1.0 mg/dL [facility] BILIRUBIN DIRECT 0.3(H) 0.0 - 0.2 mg/dL [facility] INDIRECT BILIRUBIN 0.4 0.2 - 0.9 mg/dL [facility] ALKALINE PHOSPHATASE 135(H) 45 - 117 U/L [facility] ASPARTATE AMINOTRANSFERASE 30 8 - 34 U/L [facility] ALANINE AMINOTRANSFERASE 35 12 - 45 U/L [facility] 09/01/2024 12:5 2 AM EDT 09/01/2024 1:11 AM EDT Tila Matos MD LABORATORY Final Result Performing Organization Address [facility] de Phone Number [address] [address], [place] * US Pelvic Non-OB w Transvag, 3D, Duplex (08/24/2024 3:02 PM EDT) Anatomical Region Laterality Modality Ultrasound 08/24/2024 4:57 PM EDT Impressions 08/24/2024 4:58 PM EDT Unremarkable pelvic ultrasound. Reviewed and Electronically Signed By: Ivan Steele MD Signed Date and Time: 08/24/2024 4:58 PM Narrative 08/24/2024 4:58 PM EDT CLINICAL INDICATION: RLQ pain pelvic pain COMPARISON: None TECHNIQUE: Transabdominal and transvaginal pelvic sonography were performed. Transvaginal scanning was performed to better evaluate the uterus and adnexa. 3-D imaging was performed to evaluate the uterine contour and endometrium with physician interpretation on an independent workstation. Color Doppler and spectral waveform analysis of the ovaries performed for flow. FINDINGS: Uterus: 5.3 x 4.1 x 3.0 cm. The myometrium is unremarkable. Endometrium: 3 mm in thickness. The endometrium appears unremarkable. Cervix: Unremarkable. Right ovary: 2.7 x 2.2 x 1.4 cm. The right ovary appears unremarkable. Left ovary: 2.8 x 1.8 x 1.2 cm. The left ovary appears unremarkable. Doppler: There is normal arterial and venous flow of the ovaries with color Doppler and spectral waveform analysis. Free fluid: None. Procedure Note Ivan Steele MD - 08/24/2024 CLINICAL INDICATION: RLQ pain pelvic pain COMPARISON: None TECHNIQUE: Transabdominal and transvaginal pelvic sonography were performed.Transvaginal scanning was performed to better evaluate the uterus andadnexa. 3-D imaging was performed to evaluate the uterine contour andendometrium with physician interpretation on an independent workstation.Color Doppler and spectral waveform analysis of the ovaries performed forflow. FINDINGS: Uterus: 5.3 x 4.1 x 3.0 cm. The myometrium is unremarkable. Endometrium: 3 mm in thickness. The endometrium appears unremarkable. Cervix: Unremarkable. Right ovary: 2.7 x 2.2 x 1.4 cm. The right ovary appears unremarkable. Left ovary: 2.8 x 1.8 x 1.2 cm. The left ovary appears unremarkable. Doppler: There is normal arterial and venous flow of the ovaries with color Dopplerand spectral waveform analysis. Free fluid: None. IMPRESSION: Unremarkable pelvic ultrasound. Reviewed and Electronically Signed By: Ivan Steele MD Signed Date and Time: 08/24/2024 4:58 PM us Yoni Gray PA-C [facility] US ORDERABLES Final R esult * Urine Culture Will Not Be Done (08/24/2024 1:24 PM EDT) URINE CULTURE WILL NOT BE DONE A UA Reflex UC was ordered for this specimen. The urine culture will not be done because the criteria for performing the urine culture of >10 WBC/HPF was not met on the Urinalysis microscopic result. If a culture is determined to be clinically necessary, please contact the laboratory within 24 hours of the specimen collection to add the urine culture. [facility] VOIDED URINE SPECIMEN / Unknown 08/24/2024 1:24 PM EDT 08/24/2024 1:24 PM EDT us Yoni Gray PA-C MICROBIOLOGY Final Res ult [facility] [address] [place] [address], from Last 3 Months Additional Health Concerns Infection Onset Date Last Indicated MRSA (Standard precautions o nly) Comment:Added from external infection. Source: [facility]. 10/11/2023 Insurance [facility] Advance Directives Documents on File Type Date Recorded Patient Inspector Raw Quartz Expl anation Resuscitation/Advance Directives 09/02/2024 10:13 AM Guardianship * Full Code (Latest Code Status on File) Date Activated Date Inactivated Comments 09/11/2024 11:51 PM * Full Code Date Activated Date Inactivated Comments 09/01/2024 2:21 AM 09/11/2024 11:51 PM * Full Code Date Activated Date Inactivated Comments 12/15/2023 7:14 AM 09/01/2024 2:21 AM Care Teams Veterinary Meat Inspector Relationship Specialty Start Date End Date Jesse Tillman NP [address] [place] [address] PCP - General Family Medicine 09/04/24
--- OUTSIDE RECORDS SUMMARY | 2024-09-20 12:14 | XMS_ITS | Patient Health Record ---
Author Organization [facility] Address [address] [place] [address] Care Team Providers Care Business Services Sales Representative Name Role Phone MIAN Mulligan Primary Care Provider AKIRA PALMER Unavailable [phone] Allergies Allergen (clinical drug ingredient) Drug/Non Drug Allergy documented on EMR Reaction Allergy Type Onset Date Status haloperidol haloperidol Seizures Drug Allergy Act jacque Reason For Referral No Information Medications Medication SIG (Take, Route, Frequency, Duration) Notes Start Date End Date Status fluticasone nasal 50 mcg/inh 1 spray(s) in each nostril once a day for 30 day(s) 05/21/2020 Active benzonatate 100 mg 1 cap(s) orally 3 times a day for 7 days 05/21/2020 Active nicotine 4 mg 1 AMADO by transmucosa l administration every hour Active diclofenac topical 1% as directed applie d topically 4 times a day for 30 day(s) 05/07/2020 Active Seroquel XR 200 mg 1 tab(s) orally once a day (in the evening) for 30 day(s) Active Seasonique biphasic extended cycle 1 tab(s) orally once a day for 91 day(s) Active diphenhydrAMINE 25 mg 2 tab(s) orally on ce a day (at bedtime) on weekends Active Social History Alcohol Screen Question Answer Notes Did you have a drink contain ing alcohol in the past year? Yes How often did you have a dri nk containing alcohol in the past year? Four or more times a week (4 points) How many drinks did you have on a typical day when you were drinking in the past year? 3 or 4 (1 point) How often did you have six o r more drinks on one occasion in the past year? Weekly (3 points) Points 8 Problems Problem Type SNOMED Code ICD Code Onset Dates Problem Status W/U Status Risk Notes Problem Posttraumatic stress disorder (76869697) PTSD (post-traumat ic stress disorder) (F43.10) Active confirmed Problem Muscle tension headache (G44.209) Active confirmed Encounters Encounter Location Date Provider Diagnosis [facility] [address] [place] [address] 09/09/2024 AKIRA PALMER Plan Of Treatment No Information Insurance Providers Payer Name Payer Address Payer Phone Subscriber Number Group Number Insured Name Patient Relationship to Insured Coverage Start Date Coverage End Date [facility] [address] [address] [place] [address] [phone] [id number] Nhi Man Self - patient is the insured Medical (General) History Medical History History ICD Code Substance use disorder Anxiety and depression, PTSD, personalit y disorder, Bipolar disorder Transgender Male Surgical History Surgery Date(Month/Year) Wells teeth extraction Hospitalization History Reason Date(Month/Year) Psych admission 04/22/2020 L shoulder 05/07/2020 Concussion 05/17/2020
--- OUTSIDE RECORDS SUMMARY | 2024-09-20 12:14 | XMS_ITS | Encounter Summary ---
Author Organization [facility] Address [address] [place] [address] Care Team Providers Care Hcc Coders Name Role Phone Unavailable Primary Care Provider Unavailabl e Encounter Details Date Type Department Care Team (Late st Contact Info) Description 09/18/2024 Lab Requisition [facility] Orders Shaan Babb MD [address] [place] [address] Encounter for screening, unspecified Social History Tobacco Use Types Packs/Day Years Used Date Smoking Tobacco: Never Assessed Comments Unknown Sex and Gender Information Value Date Recorded Sex Assigned at Not on file Legal Sex Female 11:39 PM EDT Gender Identity Not on file Sexual Orientation Not on file documented as of this encounter Plan of Treatment Not on file documented as of this encounter Procedures Procedure Name Priority Date/Time Associated Diagnosis Comments CULTURE, AEROBIC, URINE STAT 09/18/2024 12:12 AM EDT Encounter for screening, unspecified documented in this encounter Results * Culture, Aerobic, Urine (09/18/2024 12:12 AM EDT) Culture <10,000 CFU/ml mixed urogenital maryjane, probable contamination DANGELO 09/19/2024 7:55 AM EDT [facility] Urine MID-STREAM URINE SPECIMEN / Unknown 09/18/2024 12:12 AM EDT 09/18/2024 2:00 AM EDT us Shaan Babb MD MICROBIOLOGY - GENERAL ORDERABLE S Final Result [facility] [address] [place] [address], [place] [phone] documented in this encounter Visit Diagnoses Diagnosis Encounter for screening, unspecified documented in this encounter
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
[2024-09-20 12:38] VITALS: BP 117/64; PULSE 90; RESP 18; O2SAT 96
--- NOTE | 2024-09-20 12:47 | PC.NURSE ---
Pt has been calm, [facility] MD examined areas of reported discharge. Awaits ride back to [place].
--- NOTE | 2024-09-20 13:25 | PC.NURSE ---
Pt has been in and out of bathroom repeatedly. Had a pen ink with plastic tube and metal point in lefty pocket. Was mouthing it at one point. refuses to relequnish item. li came with a foam football fidget and isn't using that. offered ice for oral stimulation. refuses. given lunch. pt remains calm and sitter assigned. awaits tranfer back to [place].
[2024-09-20 14:30] VITALS: BP 106/70; PULSE 75; RESP 14; TEMP 36.2; O2SAT 95
[2024-09-20 14:59] VITALS: BP 106/70; PULSE 75; RESP 14; TEMP 36.2; O2SAT 95
--- NOTE | 2024-09-20 15:02 | PC.NURSE ---
Attempt to call [facility] x 2. Reached units that patient is not assigned to and unable to reach appropriate unit at this time.
== END 2024-09-20 15:03 | disposition home or self-care (01) ==
PROVIDERS: Emergency Provider Emergency Medicine
DX: S60.221A Contusion of right hand, initial encounter (principal); M79.641 Pain in right hand; Y29.XXXA Contact with blunt object, undetermined intent, initial encounter; Y93.89 Activity, other specified; Y92.89 Other specified places as the place of occurrence of the external cause; Y99.8 Other external cause status; Z91.52 Personal history of nonsuicidal self-harm; Z87.828 Personal history of other (healed) physical injury and trauma
CPT/HCPCS: 73130; 74018; 96372; 99284; J1885

== ENCOUNTER → 2024-09-20 11:23 | Outpatient (BNV) | payer OTHER, SELFPAY | PROVIDERS: Emergency Provider Emergency Medicine; Visit Provider Radiology Diagnostic Radiology | DX: Z03.821 Encounter for observation for suspected ingested foreign body ruled out (principal); S62.336A Displaced fracture of neck of fifth metacarpal bone, right hand, initial encounter for closed fracture; W22.09XA Striking against other stationary object, initial encounter | CPT/HCPCS: 73130; 74018 ==